=== PATIENT | male | born 1995 ===

== ENCOUNTER 2025-03-10 12:51 | Emergency (ER) | payer OTHER, SELFPAY ==
[2025-03-10 12:55] VITALS: BP 142/92; PULSE 70; RESP 16; TEMP 36.9; O2SAT 97
--- NOTE | 2025-03-10 13:09 | CRLHL7_ITS ---
For Patients: As a result of the Cures Act, medical imaging exams and procedure reports are released immediately into your electronic medical record. You may view this report before your referring provider. If you have questions, please contact your health care provider. Indication: Injury Comparison: None available. Technique: AP, lateral, and oblique views left 4th finger were obtained. Findings: There is dorsal dislocation of the middle phalanx from the proximal interphalangeal joint without obvious displaced fracture. The joint spaces are grossly preserved. Soft tissue swelling of the 4th digit. Impression: Dorsal dislocation of the middle phalanx from the proximal interphalangeal joint without evidence of obvious associated fracture. Dictated by Shemar Lane MD @ 03/10/2025 2:26:16 PM (Electronically Signed)
--- NOTE | 2025-03-10 13:10 | ED.UPPEXIN ---
HPI - Extremity Injury (Upper) General Chief Complaint: Extremity Pain/Injury, Upper Stated Complaint: Left Hand Middle Finger Time Seen by Provider: 03/10/25 12:54 History of Present Illness HPI narrative: This 29-year-old male comes in with an injury to his left ring finger. He was playing soccer yesterday and injured his finger then. Since then he has significant swelling and decreased range of motion. He states that he did not sleep so well last night due to pain. 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 Related Data Previous Rx's ?Medication ?Instructions ?Recorded ketorolac 10 mg tablet 10 mg PO TID 5 days #15 tabs 03/10/25 Allergies Allergy/AdvReac Type Severity Reaction Status Date / Time No Known Drug Allergies Allergy Verified 03/10/25 13:01 Review of Systems Status of ROS: Reports: 10 or more systems reviewed and unremarkable except as noted in History and below Narrative: Constitutional: No fevers, no weight gain or loss. Eyes: No discharge. No vision changes. HENT: No congestion, no sore throat, no ear pain. Cardiovascular: No chest pain, no palpitations. Respiratory: No shortness of breath, no wheezes, no cough. Gastrointestinal: No abdominal pain, no vomiting, no diarrhea. Genitourinary: No dysuria, no hematuria. Musculoskeletal: Left ring finger injury as described above. Skin: No rashes, no pruritis. Neurological: No dizziness, weakness, sensory change, speech change. Endo/Heme/Allergies: No bruising or bleeding. No polydipsia. Pysch: no suicidality, no anxiety, no insomnia. All other systems reviewed and are negative. [facility] Social History Smoking Status: Never smoker How often do you have a drink containing alcohol: monthly or less AUDIT-C Alcohol total score: 1 Non-prescribed substance use: denies use Exam Narrative: Exam Narrative: Constitutional: Well-developed, well-nourished, no acute distress. HEENT: Normocephalic, atraumatic. Neck: Normal range of motion. Nontender. Supple. Heart: Intact distal pulses. Lungs: No chest discomfort. No wheezes, rhonchi, or rales. Abdomen: Nontender. Back: Normal range of motion. Extremities: Left ring finger has significant swelling with associated decreased range of motion. There is no obvious sign of deformity otherwise. Skin: Intact. No rash. Warm. No erythema or pallor. Neurologic: No altered sensation. No weakness. Alert and oriented. Psychiatric: No suicidality. No anxiety or depression. No insomnia. Nursing notes and vitals signs are reviewed. Const: Vital Signs, click to edit/add: Vital Signs - 24 hr 03/10/25 12:55 Temperature 98.4 F Pulse Rate [Pulse Oximeter] 70 Respiratory Rate 16 Blood Pressure [Ri ght Upper Arm] 142/92 H Pulse Oximetry 97 Oxygen Delivery Me thod Room Air Course Vital Signs Vital signs: Initial Vital Signs Temperature 98.4 F 03/10/25 12:55 Temperature Source Temporal Artery Scan 03/10/25 12:55 Pulse Rate 70 03/10/25 12:55 Respiratory Rate 16 03/10/25 12:55 Blood Pressure 142/92 H 03/10/25 12:55 Blood Pressure Mean 108 H 03/10/25 12:55 Blood Pressure Position Sitting 03/10/25 12:55 Pulse Oximetry 97 03/10/25 12:55 Oxygen Delivery Method Room Air 03/10/25 12:55 Vital Signs Temperature 98.4 F 03/10/25 12:55 Pulse Rate 70 03/10/25 12:55 Respiratory Rate 16 03/10/25 12:55 Blood Pressure 142/92 H 03/10/25 12:55 Pulse Oximetry 97 03/10/25 12:55 Oxygen Delivery Method Room Air 03/10/25 12:55 Temperature 98.4 F 03/10/25 12:55 Pulse Rate 70 03/10/25 12:55 Respiratory Rate 16 03/10/25 12:55 Blood Pressure 142/92 H 03/10/25 12:55 Pulse Oximetry 97 03/10/25 12:55 Oxygen Delivery Method Room Air 03/10/25 12:55 Medications Administered Medications: Generic Name Dose Route Start Last Admin Trade Name Freq PRN Reason Stop Dose Admin Lidocaine HCl 20 ml 03/10/25 14:01 03/10/25 14:02 Lidocaine 1% Mdv INJECTION 30 ml ONCE PRN Administration MDM - Extremity Injury (Upper) MDM Narrative Medical decision making narrative: This patient comes in with an injury to his left ring finger that occurred yesterday. He has significant swelling of this area. An x-ray is obtained which by my review shows no sign of fracture but there is obvious dislocation at the PIP joint. The distal component is dislocated dorsally. I did inject 1% lidocaine at the base of the 4th finger of his left hand for a digital block. After about 15 or 20 minutes I did successfully relocate the dislocated joint. The patient's finger was placed in a splint and I did provide a prescription for Toradol. I advised him to remove the splint after a day or 2 and resume activity as tolerated. Discharge Plan Discharge Clinical Impression: Dislocation of finger PIP joint Patient Disposition: Home, Self-Care Condition: Improved Additional Instructions: Wear splint as needed and okay to remove when ready to resume activity as tolerated. Take medication as needed and directed also. Prescriptions: New ketorolac 10 mg tablet 10 mg PO TID 5 Days Qty: 15 0RF Follow Up/Referrals: Provider,Not a Local [Primary Care Provider, Family Practice] Stand Alone Forms: [employer] Info Instructions
[2025-03-10] MEDS: LIDOCAINE 1% MDV 20 ML INJECTION (14:02)
== END 2025-03-10 14:38 | disposition home or self-care (01) ==
PROVIDERS: Emergency Provider Emergency Medicine Emergency Medical Services
DX: S63.285A Dislocation of proximal interphalangeal joint of left ring finger, initial encounter (principal)
CPT/HCPCS: 26770; 73140; 99283; 99284; J2003